=== PATIENT | female | born 1965 | race African-American/Black ===

== ENCOUNTER 2017-10-18 23:09 | Emergency (ER) | payer MEDICAID, OTHER ==
[~2017-10-18] VITALS: Ht 167.6 cm; Wt 113.0 kg
[2017-10-19 00:07] LABS: GLUCOSE,POINT OF CARE 164 MG/DL (70-110)
[2017-10-19 00:24] LABS: HEMATOCRIT 23.5 % (36-46); MEAN CORPUSCULAR HEMOGLOBIN 16.2 pg (26.0-34.0); MEAN CORPUSCULAR HGB CONC 29.7 G/dL (31.0-37.0); MEAN CORPUSCULAR VOLUME 54 fL (80-100); PLATELET COUNT (AUTO) 605 K/uL (150-450); RED BLOOD CELL COUNT(AUTO) 4.33 MIL/uL (4.00-5.20); RED CELL DISTRIBUTION WIDTH 29.3 % (11.5-14.5); WHITE BLOOD COUNT (AUTO) 12.7 K/uL (4.5-11.0)
[2017-10-19 00:31] LABS: ANION GAP 13 mmol/L (8-16); CALCIUM, TOTAL 9.7 mg/dL (8.8-10.5); CARBON DIOXIDE 24 mmol/L (22-29); CHLORIDE 98 mmol/L (98-107); CREATININE 1.03 mg/dL (0.60-1.30); GLOMERULAR FILTR. RATE CALC > 60 mL/min (>60); POTASSIUM 3.6 mmol/L (3.5-5.1); SODIUM SERUM 135 mmol/L (136-145); UREA NITROGEN, BLOOD 9 mg/dL (7-18)
[2017-10-19 00:44] LABS: PROTHROMBIN TIME 11.3 SEC (9.4-11.6)
[2017-10-19 00:47] LABS: INR 1.1 (0.9-1.1)
[2017-10-19 00:53] LABS: B-TYPE NATRIURETIC PEPTIDE 165 pg/mL (0-100)
[2017-10-19 00:55] LABS: ALANINE AMINOTRANSFERASE 29 U/L (12-78); ALBUMIN 3.8 g/dL (3.4-5.0); ASPARTATE AMINOTRANSFERASE 116 U/L (15-37); BILIRUBIN,TOTAL 0.5 mg/dL (0.1-1.0); CREATINE KINASE MB 88.6 ng/mL (0-5); CREATINE KINASE, TOTAL 680 U/L (26-192); TOTAL PROTEIN, SERUM 9.7 g/dL (6.4-8.2)
[2017-10-19] MEDS ORDERED: MORPHINE SULFATE 2 MG/ML SYRINGE IVP ONE (01:00)
[2017-10-19] MEDS ORDERED: HEPARIN SODIUM 25000 UNITS/D5W 250 ML IV PRN (01:02)
[2017-10-19 01:06] LABS: LYMPHOCYTES % (MANUAL) 5 % (22-44); RBC MORPHOLOGY COMMENT ABNORMAL RBC MORPH; TOTAL CELLS COUNTED 100
[2017-10-19] MEDS ORDERED: HEPARIN SODIUM,PORCINE 5,000 UNITS/ML VIAL IVP ONE ×2 (01:15→01:30)
[2017-10-19] MEDS ORDERED: HEPARIN SODIUM,PORCINE 5,000 UNITS/ML VIAL IVP PRN ×2 (01:15)
[2017-10-19 01:20] VITALS: BP 145/80
== END 2017-10-19 01:30 | disposition short-term general hospital (02) ==
LOC: EMS 23:10
DX: I21.3 ST elevation (STEMI) myocardial infarction of unspecified site (principal); I10 Essential (primary) hypertension
CPT/HCPCS: 36415; 51702; 70450; 71010; 80053; 82550; 82553; 82962; 83880; 84484; 85025; 85610; 85730; 93005; 96374; 99291; J1644 ×2; J2270